=== PATIENT | male | born 1995 | race Caucasian/White ===

== ENCOUNTER 2025-04-05 22:30 | Emergency (ER) | payer OTHER, SELFPAY ==
[2025-04-05 22:44] VITALS: BP 131/96; PULSE 103; TEMP 37.3; O2SAT 98; BMI 21.1
--- NOTE | 2025-04-05 23:24 | ED.GIBLEED1 ---
HPI - GI Bleed General Chief complaint: GI Bleed Stated complaint: EXCESSIVE BLOOD AFTER BOWEL MOVEMENT Time Seen by Provider: 04/05/25 22:58 Source: patient Mode of arrival: walk-in Limitations: no limitations History of Present Illness HPI Narrative: This 30-year-old male who was at [facility] for cocaine and crack addiction presents for evaluation of rectal bleeding. The patient states for the past week he has been having rectal bleeding when he sits down to have a bowel movement. He states he has bright red blood dripping into the toilet at times and after having a bowel movement sometimes it squirts. He is not have any significant rectal pain. He was seen at [facility] and had a CT scan done which was negative. He was referred to [facility] for a colonoscopy later this week. He states that tonight he was laying in bed and started having some cramping in his lower abdomen as well as some low back pain. He went to see the nurse and she took his blood pressure and it was in the 160s. EMS was then called to bring him to the emergency department. He is not having any chest pain or shortness of breath. He states he has gained approximately 13 pounds since being at [facility] likely related to the fact that he is no longer using crack or cocaine. He is not having any diarrhea. He denies any dizziness or syncope. He states the rectal exam was done when he was at [place] and was positive for blood. He was not told that he had any hemorrhoids. Related Data Home Medications ?Medication ?Instructions ?Recorded ?Confirmed No Known Home Medications 04/05/25 04/05/25 Allergies Allergy/AdvReac Type Severity Reaction Status Date / Time No Known Drug Allergies Allergy Verified 04/05/25 22:44 Review of Systems ROS Status of ROS 10 or more systems reviewed and unremarkable except as noted in history and below PFSH PFSH Social History Little interest or pleasure in doing things: not at all Feeling down, depressed, or hopeless: not at all Exam Narrative Exam Narrative: Vital signs and Nursing Notes reviewed: Patient is afebrile, he is mildly tachycardic with a pulse of 103 and blood pressure is mildly elevated at 131/96, he is not hypoxic with pulse ox of 98% on room air General: Awake, alert, oriented, no acute distress, lying comfortably on the stretcher HEENT: Normocephalic atraumatic, mucous membranes are moist and pink, eyes are clear, normal conjunctiva, vision is grossly intact Neck: Supple, no meningeal signs Chest: Lungs are clear to auscultation with good air entry, there is no wheezing rhonchi or rales appreciated no accessory muscle use, patient is speaking in complete sentences-no chest wall tenderness to palpation CVS: Regular rate and rhythm S1-S2, no murmurs rubs or gallops, pulses are brisk and equal bilaterally ABD: Soft, nondistended, nontender, no rebound guarding or rigidity, bowel sounds are normal, no pulsatile masses appreciated, there is a approximately 1 x 1 cm hemorrhoid just inside the anus with a small amount of active bleeding, this is nonthrombosed and nontender Extremities: Moving all extremities, no lower extremity tenderness or swelling noted, negative Homans' sign, pulses are brisk and equal bilaterally Skin: No pallor, no skin rash, multiple tattoos Neuro: No focal deficits Constitutional Vital Signs, click to edit/add: Last Vital Signs Temp 99.1 F 04/05/25 22:44 Pulse 103 H 04/05/25 22:44 Resp 18 04/05/25 22:44 BP 131/96 H 04/05/25 22:44 Pulse Ox 98 04/05/25 22:44 O2 Del Method Room Air 04/05/25 22:44 Course Vital Signs Vital signs: Vital Signs Temperature 99.1 F 04/05/25 22:44 Pulse Rate 103 H 04/05/25 22:44 Respiratory Rate 18 04/05/25 22:44 Blood Pressure 131/96 H 04/05/25 22:44 Pulse Oximetry 98 04/05/25 22:44 Oxygen Delivery Method Room Air 04/05/25 22:44 Temperature 99.1 F 04/05/25 22:44 Pulse Rate 103 H 04/05/25 22:44 Respiratory Rate 18 04/05/25 22:44 Blood Pressure 131/96 H 04/05/25 22:44 Pulse Oximetry 98 04/05/25 22:44 Oxygen Delivery Method Room Air 04/05/25 22:44 MDM - GI Bleed MDM Narrative Medical decision making narrative: This 30-year-old male presents for evaluation of approximately 1 week of bright red blood per rectum. He states when he is sitting on the toilet bright red blood will drip into the toilet and at times it is shooting into the toilet. He is not having any specific abdominal pain he has not had any melanotic stools. He is not taking NSAIDs. [facility] cocaine addiction. He states tonight he started having some low back pain and some pain in his lower abdomen and went to speak to the nurse who took his blood pressure and stated that it was in the 160s. He was then transferred to the emergency department for evaluation. The patient did have a CT scan done at [facility] on 04/03/2025 that was normal. He was referred to outpatient gastroenterology for a colonoscopy. The patient has a hemorrhoid just inside his anus that is mildly bleeding. It is nontender and nonthrombosed. This is likely the etiology of his bleeding. I did check a comprehensive metabolic profile and CBC with differential. His hemoglobin is stable at 13.6. Electrolytes are normal. The results of the studies and my findings were discussed with him. I explained to him that he can keep his appointment for the colonoscopy if he wishes to otherwise he will be given a prescription for Anusol HC suppositories and Colace to use for the hemorrhoids. Lab Data Labs: Lab Results 04/05/25 Range/Units 23:50 WBC 9.6 (4.0-11.0) 10^3/uL RBC 4.13 L (4.70-6.10) 10^6/uL Hgb 13.6 L (14.0-18.0) g/dL Hct 40.3 L (42.0-54.0) % MCV 97.6 H (80.0-94.0) fL MCH 32.9 (25.9-34.0) pg MCHC 33.7 (29.9-35.2) g/dL RDW 13.0 (11.0-15.0) % Plt Count 186 (150-450) 10^3/uL MPV 10.7 (9.5-13.5) fL Neut % (Auto) 51.0 (43.0-75.0) % Lymph % (Auto) 34.5 (20.5-60.0) % [place] % (Auto) 12.1 H (1.7-12.0) % Eos % (Auto) 1.4 (0.9-7.0) % Baso % (Auto) 0.4 (0.2-2.0) % Neut # (Auto) 4.9 (1.4-6.5) 10^3/uL Lymph # (Auto) 3.3 (1.2-3.8) 10^3/uL [place] # (Auto) 1.2 H (0.3-0.8) 10^3/uL Eos # (Auto) 0.1 (0.0-0.7) 10^3/uL Baso # (Auto) 0.0 (0.0-0.1) 10^3/uL Abs Immat Gran (auto) 0.06 H (0.00-0.03) 10^3/uL Imm/Tot Granulo (auto) 0.6 H (0.0-0.5) % Sodium 142 (136-145) mmol/L Potassium 4.0 (3.5-5.1) mmol/L Chloride 102 (98-107) mmol/L Carbon Dioxide 31.7 (21.0-32.0) mmol/L Anion Gap 12.3 BUN 15.0 (7.0-18.0) mg/dL Creatinine 1.01 (0.70-1.30) mg/dL Est GFR ( Amer) >60 (>=60 mL/min/1.73m^2) Est GFR (Non-Af Amer) >60 (>=60 mL/min/1.73m^2) BUN/Creatinine Ratio 14.9 Glucose 90 (74-106) mg/dL Calcium 8.9 (8.5-10.1) mg/dL Total Bilirubin 0.3 (0.2-1.0) mg/dL AST 24 (15-37) U/L ALT 46 (16-63) U/L Alkaline Phosphatase 69 (46-116) U/L Total Protein 6.6 (6.4-8.2) g/dL Albumin 3.7 (3.4-5.0) g/dL Globulin 2.9 g/dL Albumin/Globulin Ratio 1.3 Discharge Plan Discharge Chief Complaint: GI Bleed Clinical Impression: Hemorrhoids, Bright red rectal bleeding Patient Disposition: Home, Self-Care Time of Disposition Decision: 00:37 Condition: Good Prescriptions / Home Meds: No Action No Known Home Medications Print Language: Uz[place] Instructions: Hemorrhoids (ED), Rectal Bleeding (ED), [place] (DC) Referrals: Physician,Non-Staff, MD [Primary Care Provider] - 1 week Discharge Date/Time: 04/06/25 01:03
[2025-04-05 23:59] LABS: Hematocrit 40.3 % (42.0-54.0); Hemoglobin 13.6 g/dL (14.0-18.0); Immature Granulocytes Abs Auto 0.06 10^3/uL (0.00-0.03); Immature Granulocytes Pct Auto 0.6 % (0.0-0.5); Lymphocytes Absolute Auto 3.3 10^3/uL (1.2-3.8); Mean Corpuscular HGB Conc 33.7 g/dL (29.9-35.2); Mean Corpuscular Hemoglobin 32.9 pg (25.9-34.0); Mean Corpuscular Volume 97.6 fL (80.0-94.0); Platelet Count 186 10^3/uL (150-450); Red Blood Count 4.13 10^6/uL (4.70-6.10); White Blood Count 9.6 10^3/uL (4.0-11.0)
[2025-04-06 00:13] LABS: Alanine Aminotransferase 46 U/L (16-63); Albumin Globulin Ratio 1.3; Albumin Level 3.7 g/dL (3.4-5.0); Alkaline Phosphatase 69 U/L (46-116); Anion Gap 12.3; Aspartate Amino Transferase 24 U/L (15-37); Blood Urea Nitrogen 15.0 mg/dL (7.0-18.0); Calcium 8.9 mg/dL (8.5-10.1); Carbon Dioxide 31.7 mmol/L (21.0-32.0); Chloride 102 mmol/L (98-107); Estimated GFR (African America >60 (>=60 mL/min/1.73m^2); Estimated GFR (Non-African Ame >60 (>=60 mL/min/1.73m^2); Globulin 2.9 g/dL; Glucose 90 mg/dL (74-106); Potassium 4.0 mmol/L (3.5-5.1); Sodium 142 mmol/L (136-145); Total Protein 6.6 g/dL (6.4-8.2)
== END 2025-04-06 01:03 | disposition home or self-care (01) ==
PROVIDERS: Emergency Provider Emergency Medicine
DX: K64.9 Unspecified hemorrhoids (principal)
CPT/HCPCS: 36415; 80053; 85025; 99283